=== PATIENT | female | born 1940 | race African-American/Black ===

== ENCOUNTER 2018-11-23 10:43 | Emergency (ER) | payer OTHER ==
[~2018-11-23] VITALS: Ht 157.5 cm; Wt 42.6 kg
[~2018-11-23 10:43] MED LIST: CATAFLAM50 MG PO
[2018-11-23] MEDS ORDERED: SYNTHROID75 MCG (11:09)
[2018-11-23] MEDS ORDERED: ATACAND HCT 321 EAC1 (11:10)
[2018-11-23] MEDS ORDERED: NORVASC10 MG (11:10)
[2018-11-23] MEDS ORDERED: LIPITOR20 MG (11:10)
== END 2018-11-23 13:17 | disposition home or self-care (01) ==
LOC: ER 10:43
DX: M10.061 Idiopathic gout, right knee (principal)

== ENCOUNTER 2019-04-14 11:28 | Emergency (ER) | payer OTHER ==
[~2019-04-14] VITALS: Ht 154.9 cm; Wt 44.5 kg
[~2019-04-14 11:28] MED LIST changes: +ATACAND HCT 321 EAC1; +LIPITOR20 MG; +NORVASC10 MG; +SYNTHROID75 MCG
[2019-04-14] MEDS ORDERED: DICLOFENAC POTA50 MG PO (14:22)
== END 2019-04-14 14:36 | disposition home or self-care (01) ==
LOC: ER 11:28
DX: M13.831 Other specified arthritis, right wrist (principal)

== ENCOUNTER → 2024-06-09 | Emergency (ER) | payer OTHER ==
[~2024-06-09] VITALS: Ht 154.9 cm; Wt 44.5 kg
[~2024-06-09] MED LIST changes: +DICLOFENAC POTA50 MG PO
== END | disposition home or self-care (01) ==
LOC: ER 13:16
DX: H57.12 Ocular pain, left eye (principal); Z88.8 Allergy status to other drugs, medicaments and biological substances; Z85.850 Personal history of malignant neoplasm of thyroid; Z85.038 Personal history of other malignant neoplasm of large intestine; E03.8 Other specified hypothyroidism